=== PATIENT | male | born 1995 | race Two or more races ===

== ENCOUNTER 2018-05-14 10:34 | Emergency (ER) | payer OTHER ==
[2018-05-14] MEDS ORDERED: ONDANSETRON 4 MG TAB.RAPDIS PO ONE (10:53)
[2018-05-14] MEDS ORDERED: NORMAL SALINE 1000 ML 1,000 ML IV ONE (10:53)
[2018-05-14] MEDS ORDERED: IBUPROFEN 600 MG TABLET PO ONE (11:04)
[2018-05-14] MEDS ORDERED: ACETAMINOPHEN 325 MG TABLET PO ONE (11:04)
--- NOTE | 2018-05-14 11:04 | ER Document Report ---
ED General - General Chief Complaint: Probable Seizure Stated Complaint: POSSIBLE SEIZURE Time Seen by Provider: 05/14/18 10:48 TRAVEL OUTSIDE OF THE [place] IN LAST 30 DAYS: No - HPI Patient complains to provider of: Possible seizure Notes: Patient coming in for possible seizure. Patient states that his girlfriend states he has had generalized shaking while in bed earlier this morning around 9 :00. Patient states he was drinking heavily night prior. Patient states last time he had a seizure was 2012 does not have a neurologist is currently not on the antibiotic medications. Patient states no clear etiology for his seizures in the past. Patient otherwise is resting comfortably complains of a slight headache along with some slight nausea. Denies fever chills nausea vomiting diarrhea head trauma - Related Data Allergies/Adverse Reactions: No Known Allergies Allergy (Verified 05/14/18 10:35) Past Medical History - Social History Smoking Status: Unknown if Ever Smoked Chew tobacco use (# tins/day): No Frequency of alcohol use: Social Drug Abuse: None Family History: Reviewed & Not Pertinent Patient has suicidal ideation: No Patient has homicidal ideation: No Neurological Medical History: Reports: Hx Seizures Renal/ Medical History: Denies: Hx Peritoneal Dialysis Past Surgical History: Reports: Hx Orthopedic Surgery - RIGHT ELBOW AND RIGHT WRIST Review of Systems - Review of Systems Constitutional: Other - Possible seizure EENT: No symptoms reported Cardiovascular: No symptoms reported Respiratory: No symptoms reported Gastrointestinal: No symptoms reported Genitourinary: No symptoms reported Male Genitourinary: No symptoms reported Musculoskeletal: No symptoms reported Skin: No symptoms reported Hematologic/Lymphatic: No symptoms reported Neurological/Psychological: No symptoms reported Physical Exam - Vital signs Vitals: Temp Pulse Resp BP Pulse Ox 97.5 F 72 18 111/68 98 05/14/18 10:41 05/14/18 10:41 05/14/18 10:41 05/14/18 10:41 05/14/18 10:41 Interpretation: Normal - General General appearance: Appears well, Alert - HEENT Head: Normocephalic, Atraumatic Eyes: Normal Pupils: PERRL - Respiratory Respiratory status: No respiratory distress Chest status: Nontender Breath sounds: Normal Chest palpation: Normal - Cardiovascular Rhythm: Regular Heart sounds: Normal auscultation Murmur: No - Abdominal Inspection: Normal Distension: No distension Bowel sounds: Normal Tenderness: Nontender Organomegaly: No organomegaly - Back Back: Normal, Nontender - Extremities General upper extremity: Normal inspection, Nontender, Normal color, Normal ROM , Normal temperature General lower extremity: Normal inspection, Nontender, Normal color, Normal ROM , Normal temperature, Normal weight bearing. No: Courtney's sign - Neurological Neuro grossly intact: Yes Cognition: Normal Orientation: AAOx4 [place] Coma Scale Eye Opening: Spontaneous [place] Coma Scale Verbal: Oriented [place] Coma Scale Motor: Obeys Commands [place] Coma Scale Total: 15 Speech: Normal Motor strength normal: LUE, RUE, LLE, RLE Sensory: Normal - Psychological Associated symptoms: Normal affect, Normal mood - Skin Skin Temperature: Warm Skin Moisture: Dry Skin Color: Normal Course - Vital Signs Vital signs: Temp Pulse Resp BP Pulse Ox 97.5 F 63 18 112/64 98 05/14/18 10:41 05/14/18 11:13 05/14/18 10:41 05/14/18 11:13 05/14/18 10:41 - Laboratory Result Diagrams: 05/14/18 11:13 Discharge - Discharge Clinical Impression: Alcohol consumption, Possible seizure activity Instructions: Seizure, Known Epileptic (OM) Additional Instructions: Your laboratory studies today show no electrolyte abnormalities. Your physical examination today shows that you have neurologically intact no critical findings on the physical exam. Laboratory studies do show slight elevation in your alcohol level. Please be aware that certain medications alcohol and pain medication such as Vicodin and Percocet morphine heroin can increase the chances of you having a seizure. Recommend follow-up primary care physician. He may take the nausea medication as prescribed a day for any nausea please make sure you drink plenty of fluids for hydration. Prescriptions: Ondansetron [Zofran Odt] 4 mg PO Q6 #30 tab.rapdis Forms: Return to Work
[2018-05-14 11:14] VITALS: BP 112/64
[2018-05-14 11:53] LABS: ALCOHOL 20 mg/dL (NONE DETECTED); ANION GAP 14 (5-19); BLOOD UREA NITROGEN 13 mg/dL (7-20); CALCIUM 9.4 mg/dL (8.4-10.2); CARBON DIOXIDE 27 mmol/L (22-30); CHLORIDE 104 mmol/L (98-107); GLUCOSE 84 mg/dL (75-110); POTASSIUM 4.4 mmol/L (3.6-5.0); SODIUM 144.8 mmol/L (137-145)
== END 2018-05-14 12:14 | disposition home or self-care (01) ==
LOC: ER 10:34
DX: G40.909 Epilepsy, unspecified, not intractable, without status epilepticus (principal); R51 Headache; R11.0 Nausea
CPT/HCPCS: 99284; 96360; 36415; 80307; 80048; S0119; J7030